=== PATIENT | male | born 1990 | race African-American/Black ===

== ENCOUNTER 2017-06-25 00:56 | Emergency (ER) | payer OTHER ==
[~2017-06-25] VITALS: Ht 188 cm; Wt 70.3 kg
[2017-06-25] MEDS ORDERED: METOCLOPRAMIDE HCL 10 MG/2 ML VIAL ONE (01:14)
[2017-06-25] MEDS ORDERED: SUMATRIPTAN SUCCINATE 6 MG/0.5 ML VIAL SQ ONE ×2 (01:25→01:30)
[2017-06-25] MEDS ORDERED: IV NS 0.9% 1,000 ML BAG IV ONE (01:30)
[2017-06-25] MEDS ORDERED: METOCLOPRAMIDE HCL 10 MG/2 ML VIAL IV ONE (01:30)
[2017-06-25 02:34] VITALS: BP 127/77
== END 2017-06-25 02:37 | disposition home or self-care (01) ==
LOC: ER 01:00
DX: R51 Headache (principal); J45.909 Unspecified asthma, uncomplicated; Z60.2 Problems related to living alone
CPT/HCPCS: 70450-TC; A4606; J2765; J3030; J7030; Z7610

== ENCOUNTER 2017-10-04 01:45 | Emergency (ER) | payer OTHER ==
[~2017-10-04] VITALS: Ht 188 cm; Wt 68.0 kg
[2017-10-04 02:33] VITALS: BP 136/82
--- NOTE | 2017-10-04 02:35 | NUR ---
PT AMBULATORY TO ER BED 2. BIBSELF C/O SOB AND INHALER NOT WORKING; ALSO C/O COUGH/CONGESTION X 3 MONTHS. 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 VSS/RESP EVEN UNLABORED/NAD NOTED/SKIN WARM AND DRY/AFEBRILE/DENIES N-V-D/AOX4. MD AT BEDSIDE FOR EVAL.
[2017-10-04] MEDS ORDERED: ALBUTEROL FS 2.5 MG/3 ML VIAL.NEB NEB ONE (03:00)
[2017-10-04] MEDS ORDERED: IPRATROPIUM NEB FS 0.5 MG/2.5 ML AMPUL.NEB NEB ONE (03:00)
[2017-10-04] MEDS ORDERED: ALBUTEROL FS 2.5 MG/3 ML VIAL.NEB ONE (03:24)
[2017-10-04] MEDS ORDERED: IPRATROPIUM NEB FS 0.5 MG/2.5 ML AMPUL.NEB ONE (03:25)
== END 2017-10-04 04:44 | disposition home or self-care (01) ==
LOC: ER 01:48
DX: J45.901 Unspecified asthma with (acute) exacerbation (principal); F17.200 Nicotine dependence, unspecified, uncomplicated; Z60.2 Problems related to living alone
CPT/HCPCS: A4606; Z7610

== ENCOUNTER 2017-12-25 14:05 | Emergency (ER) ==
[~2017-12-25] VITALS: Ht 185.4 cm; Wt 81.6 kg
[2017-12-25 14:10] VITALS: BP 126/71
[2017-12-25] MEDS ORDERED: predniSONE 20 MG TABLET ONE (15:19)
[2017-12-25] MEDS ORDERED: IPRATROPIUM NEB FS 0.5 MG/2.5 ML AMPUL.NEB ONE (15:30)
[2017-12-25] MEDS ORDERED: ALBUTEROL FS 2.5 MG/3 ML VIAL.NEB ONE (15:30)
[2017-12-25] MEDS ORDERED: IPRATROPIUM NEB FS 0.5 MG/2.5 ML AMPUL.NEB NEB ONE (15:30)
[2017-12-25] MEDS ORDERED: ALBUTEROL FS 2.5 MG/3 ML VIAL.NEB NEB ONE (15:30)
[2017-12-25] MEDS ORDERED: predniSONE 20 MG TABLET PO ONE (15:30)
--- NOTE | 2017-12-25 16:21 | NUR ---
Patient discharged to home in stable condition. Written and verbal after care instructions given. Patient verbalizes understanding of instruction.
== END 2017-12-25 16:22 | disposition home or self-care (01) ==
LOC: ER 14:06
DX: J45.901 Unspecified asthma with (acute) exacerbation (principal); F17.200 Nicotine dependence, unspecified, uncomplicated
CPT/HCPCS: 94640; 99283; J7512; A4606; Z7610

== ENCOUNTER 2018-07-15 22:17 | Emergency (ER) ==
[~2018-07-15] VITALS: Ht 182.9 cm; Wt 77.1 kg
[2018-07-15 23:12] VITALS: BP 123/71
--- NOTE | 2018-07-15 23:18 | NUR ---
PT PRESENTED TO THE ER FOR MEDICATION REFILL. PT RAN OUT OF HIS ALBUTEROL. PT AMBULATED TO ER 18, CHAIR 1 WITH A STEADY GAIT.
== END 2018-07-15 23:38 | disposition home or self-care (01) ==
LOC: ER 22:26
DX: J45.909 Unspecified asthma, uncomplicated (principal); F10.10 Alcohol abuse, uncomplicated; F17.200 Nicotine dependence, unspecified, uncomplicated; Y90.9 Presence of alcohol in blood, level not specified; Z60.2 Problems related to living alone; Z76.0 Encounter for issue of repeat prescription

== ENCOUNTER 2018-08-21 16:02 | Emergency (ER) | payer OTHER ==
[~2018-08-21] VITALS: Ht 185.4 cm; Wt 76.2 kg
[2018-08-21] MEDS ORDERED: predniSONE 20 MG TABLET ONE (16:29)
[2018-08-21] MEDS ORDERED: ALBUTEROL FS 2.5 MG/3 ML VIAL.NEB CONTNEB ONE (16:30)
[2018-08-21] MEDS ORDERED: predniSONE 20 MG TABLET PO ONE (16:30)
[2018-08-21] MEDS ORDERED: IPRATROPIUM NEB FS 0.5 MG/2.5 ML AMPUL.NEB NEB ONE (16:30)
[2018-08-21] MEDS ORDERED: ALBUTEROL FS 2.5 MG/3 ML VIAL.NEB ONE (16:50)
[2018-08-21] MEDS ORDERED: IPRATROPIUM NEB FS 0.5 MG/2.5 ML AMPUL.NEB ONE (16:50)
--- NOTE | 2018-08-21 16:50 | NUR ---
PATIENT RECEIVING BREATHING TX. PATIENT IN NO DISTRESS AT THIS TIME.
[2018-08-21 18:08] VITALS: BP 124/65
--- NOTE | 2018-08-21 18:08 | NUR ---
RX PROVIDED, Patient discharged to home in stable condition. Written and verbal after care instructions given. Patient verbalizes understanding of instruction.
== END 2018-08-21 18:09 | disposition home or self-care (01) ==
LOC: ER 16:05
DX: J45.909 Unspecified asthma, uncomplicated (principal); F17.200 Nicotine dependence, unspecified, uncomplicated; Z60.2 Problems related to living alone
CPT/HCPCS: 71045; 94644; 99285; J7512

== ENCOUNTER 2018-09-08 05:12 | Emergency (ER) | payer OTHER ==
[~2018-09-08] VITALS: Ht 193 cm; Wt 88.5 kg
--- NOTE | 2018-09-08 05:15 | NUR ---
BIBS FIR C/O SOB/ ASTHMA ATTACK. HOLDING O2 SAT OF 96% ON R/A. PT WAS PLACED ON A MONITOR,. SUPPLEMENTAL O2 APPLIED. VSS. RT MADE AWARE. WILL CONT TO MONITOR,
[2018-09-08] MEDS ORDERED: ALBUTEROL FS 2.5 MG/3 ML VIAL.NEB ONE ×2 (05:18→05:52)
[2018-09-08] MEDS ORDERED: IPRATROPIUM NEB FS 0.5 MG/2.5 ML AMPUL.NEB ONE ×2 (05:18→05:53)
[2018-09-08] MEDS ORDERED: predniSONE 20 MG TABLET ONE (05:20)
[2018-09-08] MEDS ORDERED: IPRATROPIUM NEB FS 0.5 MG/2.5 ML AMPUL.NEB NEB ONE (05:30)
[2018-09-08] MEDS ORDERED: ALBUTEROL FS 2.5 MG/3 ML VIAL.NEB NEB ONE (05:30)
[2018-09-08] MEDS ORDERED: predniSONE 20 MG TABLET PO ONE (05:30)
--- NOTE | 2018-09-08 06:07 | NUR ---
SITTING IJN BED REPORTED FEELING BETTER. STILL ON ONGOING BREATHING TX. WILL CONT TO MONITOR,
--- NOTE | 2018-09-08 07:22 | NUR ---
Patient discharged to home in stable condition. Rx and Written and verbal after care instructions given. Patient verbalizes understanding of instruction.
[2018-09-08 07:25] VITALS: BP 124/71
== END 2018-09-08 07:26 | disposition home or self-care (01) ==
LOC: ER 05:14
DX: J45.909 Unspecified asthma, uncomplicated (principal); F10.10 Alcohol abuse, uncomplicated; F12.10 Cannabis abuse, uncomplicated; Y90.9 Presence of alcohol in blood, level not specified; Z60.2 Problems related to living alone
CPT/HCPCS: 94644; 99284; J7512

== ENCOUNTER 2018-11-15 08:48 | Emergency (ER) | payer OTHER ==
[~2018-11-15] VITALS: Ht 180.3 cm; Wt 74.8 kg
--- NOTE | 2018-11-15 08:57 | NUR ---
PATIENT IS SEEN BY DR. ESTRADA. WILL CONTINUE MONITORING PATIENT.
[2018-11-15] MEDS ORDERED: IPRATROPIUM NEB FS 0.5 MG/2.5 ML AMPUL.NEB NEB ONE ×2 (09:00→10:00)
[2018-11-15] MEDS ORDERED: ALBUTEROL FS 2.5 MG/3 ML VIAL.NEB CONTNEB ONE ×2 (09:00→10:00)
[2018-11-15] MEDS ORDERED: predniSONE 20 MG TABLET PO ONE (09:00)
[2018-11-15] MEDS ORDERED: ALBUTEROL FS 2.5 MG/3 ML VIAL.NEB ONE ×2 (09:03→09:49)
[2018-11-15] MEDS ORDERED: IPRATROPIUM NEB FS 0.5 MG/2.5 ML AMPUL.NEB ONE ×2 (09:03→09:49)
[2018-11-15] MEDS ORDERED: predniSONE 20 MG TABLET ONE (09:05)
--- NOTE | 2018-11-15 09:41 | NUR ---
RESASSESSED PATIENT'S LUNG SOUNDS AND TREATMENT EFFECTIVENESS. DR. ESTRADA IS NOTIFIED OF PATIENT'S CURRENT STATUS. WILL AWAIT FOR FURTHER INTERVENTIONS.
[2018-11-15 10:16] VITALS: BP 117/67
== END 2018-11-15 10:56 | disposition home or self-care (01) ==
LOC: ER 08:48
DX: J45.909 Unspecified asthma, uncomplicated (principal); Z88.0 Allergy status to penicillin; Z88.6 Allergy status to analgesic agent; Z60.2 Problems related to living alone
CPT/HCPCS: 94640 ×2; 99284; J7512

== ENCOUNTER 2018-12-30 07:53 | Emergency (ER) | payer OTHER ==
[~2018-12-30] VITALS: Ht 185.4 cm; Wt 80.3 kg
--- NOTE | 2018-12-30 08:09 | NUR ---
PT CAME TO THE ED C/O OF SOB AND CONGESTION SINCE 12/16 W/ MINIMAL RELIEF TO INHALER. PT AAOX4, BREATHING EVEN AND UNLABORED W/ NO ACUTE DISTRESS NOTED, AMBULATORY W/ STEADY GAIT. PT CONNECTED TO THE MONITOR.
[2018-12-30] MEDS ORDERED: ALBUTEROL FS 2.5 MG/3 ML VIAL.NEB NEB ONE (08:30)
[2018-12-30] MEDS ORDERED: predniSONE 20 MG TABLET PO ONE (08:30)
[2018-12-30] MEDS ORDERED: IPRATROPIUM NEB FS 0.5 MG/2.5 ML AMPUL.NEB NEB ONE (08:30)
[2018-12-30] MEDS ORDERED: predniSONE 20 MG TABLET ONE (08:31)
[2018-12-30] MEDS ORDERED: ALBUTEROL FS 2.5 MG/3 ML VIAL.NEB ONE (08:38)
[2018-12-30] MEDS ORDERED: IPRATROPIUM NEB FS 0.5 MG/2.5 ML AMPUL.NEB ONE (08:38)
--- NOTE | 2018-12-30 08:40 | NUR ---
RT AT BEDSIDE FOR TX
[2018-12-30 09:15] VITALS: BP 114/60
== END 2018-12-30 09:18 | disposition home or self-care (01) ==
LOC: ER 07:55
DX: J45.909 Unspecified asthma, uncomplicated (principal); R51 Headache; Z88.0 Allergy status to penicillin; Z88.6 Allergy status to analgesic agent; Z60.2 Problems related to living alone
CPT/HCPCS: 94640; 99283; J7512

== ENCOUNTER 2019-01-11 19:51 | Emergency (ER) | payer OTHER ==
[~2019-01-11] VITALS: Ht 188 cm; Wt 72.6 kg
--- NOTE | 2019-01-11 19:51 | NUR ---
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 USED ALBUTEROL INHALER WITHOUT IMPROVEMENT WHEEZING HEARD BILATERALLY ON AUSCULTATION." PT AAOX4, NAD NOTED, VSS ,PENDING MD OSWALD
[2019-01-11] MEDS ORDERED: Magnesium 1GM/D5W 100ML PREMIX 200 ML IV ONE ×2 (19:59→20:00)
[2019-01-11] MEDS ORDERED: IV NS 0.9% 1,000 ML IV ONE (19:59)
[2019-01-11] MEDS ORDERED: ALBUTEROL FS 2.5 MG/3 ML VIAL.NEB CONTNEB ONE (20:00)
[2019-01-11] MEDS ORDERED: IPRATROPIUM NEB FS 0.5 MG/2.5 ML AMPUL.NEB NEB ONE (20:00)
[2019-01-11] MEDS ORDERED: methylPREDNISolone SOD SUCC 125 MG/2ML VIAL IV ONE (20:00)
[2019-01-11] MEDS ORDERED: methylPREDNISolone SOD SUCC 125 MG/2ML VIAL ONE (20:00)
[2019-01-11] MEDS ORDERED: ALBUTEROL FS 2.5 MG/3 ML VIAL.NEB ONE (20:06)
[2019-01-11] MEDS ORDERED: IPRATROPIUM NEB FS 0.5 MG/2.5 ML AMPUL.NEB ONE (20:06)
[2019-01-11 20:13] LABS: BASOPHILS # (AUTO) 0.1 /CMM (0.0-0.2); BASOPHILS % (AUTO) 0.9 % (0.0-2.0); EOSINOPHILS % (AUTO) 5.5 % (0.0-6.0); HEMATOCRIT 47 % (39-51); LYMPHOCYTES # (AUTO) 4.4 /CMM (0.8-4.8); LYMPHOCYTES % (AUTO) 42.4 % (20.0-44.0); MEAN CORPUSCULAR HGB CONC 34 g/dl (31.0-36.0); MEAN CORPUSCULAR VOLUME 87 fL (80-96); MONOCYTES # (AUTO) 1.2 /CMM (0.1-1.30); MONOCYTES % (AUTO) 11.3 % (2.0-12.0); NEUTROPHILS # (AUTO) 4.2 /CMM (1.8-8.9); NEUTROPHILS % (AUTO) 39.9 % (43.0-81.0); PLATELET COUNT (AUTO) 223 /CMM (150-450); WHITE BLOOD COUNT (AUTO) 10.5 K/uL (4.3-11.0)
[2019-01-11 20:23] LABS: CALCIUM, SERUM 9.4 mg/dL (8.5-10.1); CREATININE 1.1 mg/dL (0.6-1.3); POTASSIUM 3.5 mmol/L (3.5-5.1)
[2019-01-11 21:16] VITALS: BP 137/91
--- NOTE | 2019-01-11 22:43 | NUR ---
Patient discharged to home in stable condition. Written and verbal after care instructions given. Patient verbalizes understanding of instruction.IV removed. Catheter intact and site benign. Pressure and 4x4 applied to site. No bleeding noted.
== END 2019-01-11 22:45 | disposition home or self-care (01) ==
LOC: ER 19:55
DX: J45.901 Unspecified asthma with (acute) exacerbation (principal); Z88.0 Allergy status to penicillin; Z88.6 Allergy status to analgesic agent; Z60.2 Problems related to living alone
CPT/HCPCS: 36415; 71045; 80048; 85025; 94644; 96365; 96375; 99285; J2930; J3475; J7030 ×2

== ENCOUNTER 2019-11-17 05:58 | Emergency (ER) | payer OTHER ==
[~2019-11-17] VITALS: Ht 188 cm; Wt 72.6 kg
--- NOTE | 2019-11-17 05:59 | NUR ---
C/O SOB WITH WHEEZING. 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 placed on monitor. pending er provider juliet
--- NOTE | 2019-11-17 06:15 | NUR ---
piv started, lac20
[2019-11-17] MEDS ORDERED: methylPREDNISolone SOD SUCC 125 MG/2ML VIAL ONE (06:32)
[2019-11-17] MEDS: ALBUTEROL FS 2.5 MG/3 ML VIAL.NEB NEB ONE ×2 (06:33→07:37)
[2019-11-17] MEDS: IPRATROPIUM NEB FS 0.5 MG/2.5 ML AMPUL.NEB NEB ONE (06:33)
[2019-11-17] MEDS: methylPREDNISolone SOD SUCC 125 MG/2ML VIAL IV ONE (06:37)
[2019-11-17] MEDS ORDERED: IPRATROPIUM NEB FS 0.5 MG/2.5 ML AMPUL.NEB ONE (06:39)
[2019-11-17] MEDS ORDERED: ALBUTEROL FS 2.5 MG/3 ML VIAL.NEB ONE ×2 (06:39→07:39)
--- NOTE | 2019-11-17 07:00 | NUR ---
RT AT BEDSIDE FOR BREATHING TX
--- NOTE | 2019-11-17 07:30 | NUR ---
CALLED RT FOR 2ND BREATHING TX
--- NOTE | 2019-11-17 08:14 | NUR ---
IV removed. Catheter intact and site benign. Pressure and 4x4 applied to site. No bleeding noted.Patient discharged to home in stable condition. Written and verbal after care instructions given. Patient verbalizes understanding of instruction.
[2019-11-17 08:15] VITALS: BP 108/55
== END 2019-11-17 09:17 | disposition home or self-care (01) ==
LOC: ER 05:58
DX: J45.909 Unspecified asthma, uncomplicated (principal); Z88.0 Allergy status to penicillin; Z88.6 Allergy status to analgesic agent; Z60.2 Problems related to living alone
CPT/HCPCS: 94640 ×2; 96374; 99285; J2930